=== PATIENT | female | born 1945 | race Native Hawaiian/Other Pacific Islander ===

== ENCOUNTER 2023-02-22 20:26 | Emergency (ER) | payer OTHER ==
[~2023-02-22] VITALS: Ht 165.1 cm; Wt 77.1 kg
[2023-02-22 21:14] LABS: PLATELET COUNT 248 K/uL (152-353)
[2023-02-22 21:25] LABS: POTASSIUM 3.2 mmol/L (3.6-5.2)
[2023-02-23 00:05] VITALS: BP 148/89; TEMP 98
== END 2023-02-23 00:05 | disposition home or self-care (01) ==
LOC: ED 20:26
PROVIDERS: Emergency Medicine Emergency Medical Services
DX: S16.1XXA Strain of muscle, fascia and tendon at neck level, initial encounter (principal); S20.219A Contusion of unspecified front wall of thorax, initial encounter; W01.0XXA Fall on same level from slipping, tripping and stumbling without subsequent striking against object, initial encounter; G31.9 Degenerative disease of nervous system, unspecified; R90.82 White matter disease, unspecified; K76.9 Liver disease, unspecified
CPT/HCPCS: 36415; 80053; 81002; 84484; 85027; 85610; 93005; 96361; 96374; 96375; 99284; J1170; J2930; Q9963

== ENCOUNTER 2023-03-03 18:55 | Emergency (ER) | payer OTHER ==
[~2023-03-03] VITALS: Ht 165.1 cm; Wt 72.6 kg
[2023-03-03 19:00] VITALS: BP 117/77; TEMP 97.8
== END 2023-03-03 20:40 | disposition home or self-care (01) ==
LOC: ED 18:55
DX: M54.9 Dorsalgia, unspecified (principal)
CPT/HCPCS: 99284; J1100